=== PATIENT | female | born 1995 | race Caucasian/White ===

== ENCOUNTER → 2021-08-13 | Outpatient (CLI) | payer OTHER ==
[~2021-08-13] MED LIST: BACTRIM DS TAB1 EACH PO; COLACE 100MG C100 MG PO; IBUPROFEN800 MG PO; MEDROXYPRO150 MG/11 IM; OMEPRAZOLE10 MG PO; PRENATAL VITAM1 EAC6 PO; PROZAC40 MG PO; SUBUTEX 8 MG TAB8 MG SL; TRAZODONE HCL150 MG PO; ZOFRAN4 MG PO
== END ==
LOC: EMI 07-15 09:30
DX: G43.009 Migraine without aura, not intractable, without status migrainosus (principal); G44.89 Other headache syndrome; H53.9 Unspecified visual disturbance
CPT/HCPCS: 70553; A9577